=== PATIENT | female | born 1965 | race Caucasian/White ===

== ENCOUNTER 2016-06-29 10:57 | Emergency (ER) | payer OTHER ==
[~2016-06-29] VITALS: Ht 162.6 cm; Wt 65.8 kg
[~2016-06-29 10:57] MED LIST: AMOXICILLIN 50500 MG PO; MONTELUKAST SOD10 MG PO; ZITHROMAX Z PA250 MG PO
--- NOTE | 2016-06-29 11:08 | Urgent Treatment Center Report ---
History of Present Issue Date/Time Seen by Provider 06/29/16 1107 Visit Reason Pt arrived:Walked Presenting Problem:c/o dry cough, pain in middle back x 2 weeks. patient states PNA dx in april with ongoing pain issues Location if Accident: Onset of symptoms date/time:/ or onset unknown for:MEDICAL HX UNKNOWN Have you (or family members/close friends) recently traveled outside the [place]? N If Yes, where/when: Have you had exposure to infectious disease within the past month? TB? Other? Specify: Patient states that she recently had pneumonia in Apr. States that she is having pain in her back area when she takes a deep breath. States that she also has had a dry nagging cough for last two weeks which is when her pain started in her back. States that she has just not felt good since Apr ALLERGIES Coded Allergies: No Known Allergies (05/13/16) History Medical History General CAD? No Angina: No CT: No Hypertension? No Hyperlipidemia? No CHF? No DVT? No PE? No COPD? No Asthma? No Anemia? No GERD? No Gastric ulcers? No GI Bleed? No Hernia? No Thyroid Problems? No Hypothyroidism? No CVA? No Seizures? No Diabetes? No Renal Insuffiency? No UTI? No Stones? No GB Disease: No Nephritic Syndrome? No Asplenia? No Hepatitis? No Sickle Cell Disease? No Arthritis? No Migraines? No Cataracts? No Glaucoma? No MRSA? No HIV? No TB? No Anxiety? No Depression? No Cancer? No Immunization HX DT/Tetanus > 10 Years Ago Surgical Hx Previous Surgery?Y GRACY OVARIAN CYST hysterectomy Social History Smoking Hx Smoker: Current Every Day Smoker Tobacco: Yes Type Cigarettes Packs/day < 1 Pack Alcohol Alcohol: No Review of Systems All Other Systems Reviewed and Negative Constitutional denies no symptoms reported Respiratory cough Musculoskeletal back pain Comment Having pain in her lung area in her back after coughing for about 2 weeks nothing she has done has helped. States that she has had ongoing issues since she was diagnosed with Pneumonia in Apr Physical Exam Vital Signs Vital Signs Date Time Temp Pulse Resp B/P Pulse O2 O2 Flow FiO2 Ox Delivery Rate 06/29 1103 99.2 84 18 134/89 96 General Appearance normal appearance, WD/WN, no apparent distress Respiratory Status Yes: trachea midline, chest symmetrical, non tender chest. No: respiratory distress. Cardiovascular normal exam, regular rate/rhythm, no peripheral edema, no gallop, no JVD Neurologic alert, photographic processor II-XII nml as tested, normal exam, no motor/sensory deficits, oriented x 3 Medical Decision Making LABS/Meds/Orders Pt receiving controlled substance in ED? No Results/Orders Orders Procedure Date/time Status CHEST(2 VIEWS-NOT PORTABLE) 06/29 1109 Active XRAY/CT/US XRAY/CT/US XRAY chest XR interpretation by reviewed by me Xray Results RLL pneumonia Departure Departure Time of Disposition 1151 Disposition DC Home or Self Care(routine) Clinical Impression Primary Impression: Pneumonia Qualifiers: Pneumonia type: due to unspecified organism Laterality: right Lung location: lower lobe of lung Qualified Code: J18.9 - Pneumonia, unspecified organism Condition STABLE Referrals NO REFERRAL (Family) Patient Instructions Pneumonia-Adult Additional Instructions Drink plenty of fluids Follow up with family doctor immediately Return if needed Take medication as prescribed Discharge Counseling Counseled pt/family regarding diagnosis, test results, medications/RX, home care, follow up needs Prescriptions Current Visit Scripts Levofloxacin (Levaquin 750mg) 750 MG PO DAILY #5 TAB at 1152
[2016-06-29] MEDS ORDERED: LEVAQUIN 750 M750 MG PO (11:52)
[2016-06-29 12:00] VITALS: BP 134/89
--- NOTE | 2016-06-29 13:12 | RADIOLOGY REPORT PS360 ---
CHEST(2 VIEWS-NOT PORTABLE) COMPARISON: PA and lateral chest 04/25/2016 HISTORY: Cough and congestion TECHNIQUE: PA and lateral chest FINDINGS: Lung bucio are well expanded. There has been essentially complete clearing of the minimal pneumonic infiltrate seen in the right middle lobe on the previous study. There may be minimal focal scarring or atelectasis seen right lateral chest. The remainder lung bucio are clear. Cardiac size is normal and the vascularity is normal. There are calcified left hilar nodes. IMPRESSION: Essentially resolved right middle lobe pneumonia
[2016-07-01] MEDS ORDERED: FLEXERIL10 MG PO (10:02)
== END 2016-06-29 12:00 | disposition home or self-care (01) ==
LOC: UTC 10:57
DX: J18.9 Pneumonia, unspecified organism (principal); Z72.0 Tobacco use